=== PATIENT | female | born 1940 | race African-American/Black ===

== ENCOUNTER 2021-07-02 06:26 | Day surgery (SDC) | payer OTHER ==
[2021-06-26 11:17] VITALS: BMI 29.9
[2021-07-02] MEDS ORDERED: MIDAZOLAM HCL 2 MG/2 ML SINGLE DOSE VIAL ONE ×2 (07:10→07:19)
[2021-07-02] MEDS ORDERED: BUPIVACAINE HCL/PF 0.5% (5 MG/ML) 30 ML VIAL IJ ONE (07:10)
[2021-07-02] MEDS ORDERED: BUPIVACAINE LIPOSOME/PF (EXPAREL) 266 MG/20 ML VIAL ONE (07:11)
[2021-07-02] MEDS ORDERED: SODIUM CHLORIDE 0.9% P/F 10 ML VIAL IJ ONE (07:11)
[2021-07-02] MEDS ORDERED: MAGNESIUM HYDROX 2400MG/30ML ORAL SUSPENSION 30 ML CUP PO PRN (07:16)
[2021-07-02] MEDS ORDERED: ONDANSETRON 4 MG/2 ML VIAL IVPUSH PRN (07:16)
[2021-07-02] MEDS ORDERED: MAG HYDROX/AL HYDROX/SIMETH 30 ML UNIT-DOSE CUP PO PRN (07:16)
[2021-07-02] MEDS ORDERED: PROPOFOL 20 ML ONE ×3 (07:19→08:56)
[2021-07-02] MEDS ORDERED: SUCCINYLCHOLINE CHLORIDE 200 MG/10 ML SYRINGE ONE (07:19)
[2021-07-02] MEDS ORDERED: CEFAZOLIN 2 GM in DEXTROSE 5%-WATER - 50 ML IVPB ONE (07:19)
[2021-07-02] MEDS ORDERED: LACTATED RINGERS SOLUTION 1,000 ML IV SCH (07:30)
[2021-07-02] MEDS ORDERED: GLYCOPYRROLATE 0.2 MG/1 ML VIAL ONE (07:51)
[2021-07-02] MEDS ORDERED: BUPIVACAINE HCL 50 ML ONE (08:03)
[2021-07-02] MEDS ORDERED: ONDANSETRON 4 MG/2 ML VIAL ONE (08:57)
[2021-07-02] MEDS ORDERED: LIDOCAINE HCL/PF 2% SDV 5ML VIAL ONE (08:57)
[2021-07-02] MEDS ORDERED: DEXAMETHASONE SOD PHOSPHATE 4 MG/1 ML VIAL ONE (08:57)
[2021-07-02] MEDS ORDERED: ceFAZolin SODIUM 1 GM VIAL ONE ×2 (08:57→17:20)
[2021-07-02] MEDS ORDERED: TRANEXAMIC ACID 1000 MG/10 ML VIAL ONE (08:57)
[2021-07-02] MEDS ORDERED: oxyCODONE HCL 5 MG TABLET PO PRN (09:43)
[2021-07-02] MEDS ORDERED: ACETAMINOPHEN 1000 MG/100 ML BAG IVPB ONE (09:43)
[2021-07-02] MEDS ORDERED: PATIENT'S OWN MEDICATION (NON-FORMULARY) (Lisinopril/Hydrochlorothiazide [Lisinopril-Hctz PO SCH (10:00)
[2021-07-02] MEDS ORDERED: ACETAMINOPHEN INJECTION 100 ML IVPB ONE (11:25)
[2021-07-02] MEDS: oxyCODONE HCL 5 MG TABLET PO PRN ×3 (14:48→21:57)
[2021-07-02] MEDS ORDERED: DEXTROSE 5%-WATER - 50 ML IVPB ONE (17:21)
[2021-07-02] MEDS: ACETAMINOPHEN 500 MG TABLET (FP) PO SCH (17:33)
[2021-07-02] MEDS: CEFAZOLIN 1 GM in DEXTROSE 5%-WATER - 50 ML IVPB SCH (17:33)
[2021-07-02] MEDS: MULTIVITAMINS (DAILY MVI) TABLET (FP) PO SCH (21:34)
[2021-07-02] MEDS: FAMOTIDINE 20 MG TABLET PO SCH ×2 (21:34→21:56)
[2021-07-02] MEDS: ASPIRIN COATED 81 MG TABLET.EC PO SCH (21:56)
[2021-07-02] MEDS: SENNOSIDES/DOCUSATE COMBO (SENNA PLUS) TABLET (UD) PO SCH (21:56)
[2021-07-02] MEDS ORDERED: PATIENT'S OWN MEDICATION (NON-FORMULARY) (Simvastatin [Simvastatin] 10 MG Tablet) PO SCH (22:00)
[2021-07-03] MEDS: ACETAMINOPHEN 500 MG TABLET (FP) PO SCH ×3 (02:00→18:03)
[2021-07-03] MEDS: oxyCODONE HCL 5 MG TABLET PO PRN ×2 (06:16→09:18)
[2021-07-03] MEDS: CEFAZOLIN 1 GM in DEXTROSE 5%-WATER - 50 ML IVPB SCH ×2 (06:18→08:46)
[2021-07-03 08:01] LABS: CALCIUM 9.2 mg/dl (8.5-10); CREATININE 0.9 mg/dl (0.55-1.3)
[2021-07-03] MEDS ORDERED: ceFAZolin SODIUM 1 GM VIAL ONE (08:29)
[2021-07-03] MEDS ORDERED: DEXTROSE 5%-WATER - 50 ML IVPB ONE (08:30)
[2021-07-03 08:44] LABS: HEMATOCRIT 39.6 % (32.4-45.2); MCH 29.7 pg (25.7-33.7); MCHC 32.8 g/dl (32.0-36.0); MEAN CELL VOLUME 90.5 fl (80-96); MEAN PLT VOLUME 10.5 fl (7.5-11.1); PLATELET COUNT 207 10^3/uL (134-434); RBC 4.37 M/mm3 (3.60-5.2); RDW 13.7 % (11.6-15.6)
[2021-07-03] MEDS: ASPIRIN COATED 81 MG TABLET.EC PO SCH ×2 (08:45→21:03)
[2021-07-03] MEDS: SENNOSIDES/DOCUSATE COMBO (SENNA PLUS) TABLET (UD) PO SCH ×2 (09:00→22:04)
[2021-07-03] MEDS: CHOLECALCIFEROL (VIT D3) 1,000 UNIT (25 MCG) TABLET PO SCH (09:00)
[2021-07-03] MEDS: HYDROCHLOROTHIAZIDE 12.5 MG CAPSULE (FP) PO SCH (09:00)
[2021-07-03] MEDS: MULTIVITAMINS (DAILY MVI) TABLET (FP) PO SCH (09:01)
[2021-07-03] MEDS: LISINOPRIL 10 MG TABLET PO SCH (09:01)
[2021-07-03] MEDS: FAMOTIDINE 20 MG TABLET PO SCH ×2 (09:01→22:05)
[2021-07-03] MEDS ORDERED: LISINOPRIL 10 MG TABLET PO ONE (16:07)
[2021-07-03] MEDS: traMADol HCL 50 MG TABLET PO PRN ×2 (16:33→20:25)
[2021-07-03] MEDS ORDERED: LABETALOL HCL 5 MG/1 ML (100MG/20 ML VIAL) IVPUSH ONE (18:28)
[2021-07-03] MEDS: hydrALAZINE HCL 10 MG TABLET PO SCH ×2 (20:25→22:04)
[2021-07-03] MEDS ORDERED: hydrALAZINE HCL 20 MG/ML VIAL IVPUSH ONE (21:37)
[2021-07-03] MEDS ORDERED: ATORVASTATIN CA 10 MG TABLET (FP) PO SCH (22:00)
[2021-07-04] MEDS ORDERED: ACETAMINOPHEN INJECTION 100 ML IVPB ONE (01:20)
[2021-07-04] MEDS ORDERED: hydrALAZINE HCL 20 MG/ML VIAL IVPUSH ONE (01:42)
[2021-07-04] MEDS ORDERED: ACETAMINOPHEN 1000 MG/100 ML BAG IVPB ONE ×2 (01:42→06:15)
[2021-07-04] MEDS: ACETAMINOPHEN 500 MG TABLET (FP) PO SCH (01:45)
[2021-07-04] MEDS: traMADol HCL 50 MG TABLET PO PRN ×2 (06:17→12:39)
[2021-07-04 06:27] VITALS: TEMP 98.6
[2021-07-04 07:01] VITALS: BP 129/79; PULSE 98
[2021-07-04] MEDS: hydrALAZINE HCL 10 MG TABLET PO SCH (07:07)
[2021-07-04] MEDS: CHOLECALCIFEROL (VIT D3) 1,000 UNIT (25 MCG) TABLET PO SCH (09:05)
[2021-07-04] MEDS: FAMOTIDINE 20 MG TABLET PO SCH (09:05)
[2021-07-04] MEDS: LISINOPRIL 10 MG TABLET PO SCH (09:05)
[2021-07-04] MEDS: HYDROCHLOROTHIAZIDE 12.5 MG CAPSULE (FP) PO SCH (09:05)
[2021-07-04] MEDS: SENNOSIDES/DOCUSATE COMBO (SENNA PLUS) TABLET (UD) PO SCH (09:05)
[2021-07-04] MEDS: ASPIRIN COATED 81 MG TABLET.EC PO SCH (09:06)
[2021-07-04] MEDS: MULTIVITAMINS (DAILY MVI) TABLET (FP) PO SCH (09:06)
[2021-07-04 09:55] LABS: HEMATOCRIT 37.8 % (32.4-45.2); HEMOGLOBIN 12.8 GM/dL (10.7-15.3); MCH 30.4 pg (25.7-33.7); MEAN CELL VOLUME 89.3 fl (80-96); PLATELET COUNT 164 10^3/uL (134-434); RBC 4.23 M/mm3 (3.60-5.2); RDW 13.3 % (11.6-15.6); WHITE BLOOD COUNT 10.6 K/mm3 (4.0-10.0)
== END 2021-07-04 13:43 | disposition home or self-care (01) ==
LOC: FASUSAT 06:26 → SUATTDRO 06:26 → FM/S 12:20 → FASUSAT 07-04 13:43
PROVIDERS: ATTEND Nurse Practitioner Acute Care
PROC: 0SRD0J9 Replacement of Left Knee Joint with Synthetic Substitute, Cemented, Open Approach (ICD-10-PCS; principal; 2021-07-02 08:36)
DX: M17.11 Unilateral primary osteoarthritis, right knee (principal)
CPT/HCPCS: 27447; C1776; 36415; 73560-TC-LT-FY; 80048; 85027; 88305-TC; 88311-TC; 94760; 97010-GP; 97116-GP; 97162-GP